=== PATIENT | male | born 1990 | race Caucasian/White ===

== ENCOUNTER 2016-12-20 20:46 | Emergency (ER) | payer BC ==
[2016-12-20 20:52] VITALS: BP 171/93
--- NOTE | 2016-12-20 21:13 | ED ---
Medical Screening - HPI Summary HPI Summary: 26M presents for testing to be admitted to detox for drugs. He uses fenatyl, oxycodone. He denies any symptoms at this time. Last use was today. He does not use any IV drugs. He denies any chest pain, SOB, or fever. - History of Current Complaint Chief Complaint: EDGeneral Stated Complaint: REQUESTING TESTING FOR DETOX ADMISSION Time Seen by Provider: 12/20/16 21:05 PMH/Surg Hx/FS Hx/Imm Hx Endocrine/Hematology History: Denies: Hx Anticoagulant Therapy Cardiovascular History: Reports: Hx Hypertension Infectious Disease History: No Infectious Disease History: Denies: Traveled Outside the in Last 30 Days - Family History Known Family History: Negative: Cardiac Disease - Social History Alcohol Use: Occasionally Substance Use Type: Reports: Other - narcoctics Review of Systems Negative: Fever Negative: Chest Pain Negative: Shortness Of Breath All Other Systems Reviewed And Are Negative: Yes Physical Exam Triage Information Reviewed: Yes Vital Signs On Initial Exam: Initial Vitals Temp Pulse Resp BP Pulse Ox 98.6 F 78 17 171/93 100 12/20/16 20:47 12/20/16 20:47 12/20/16 20:47 12/20/16 20:47 12/20/16 20:47 Vital Signs Reviewed: Yes Appearance: Positive: Well-Appearing Skin: Positive: Warm, Dry Head/Face: Positive: Normal Head/Face Inspection Eyes: Positive: Normal, Conjunctiva Clear Respiratory/Lung Sounds: Positive: Clear to Auscultation, Breath Sounds Present Cardiovascular: Positive: Normal, RRR Diagnostics - Vital Signs Vital Signs Temp Pulse Resp BP Pulse Ox 12/20/16 20:47 98.6 F 78 17 171/93 100 - Laboratory Lab Statement: Any lab studies that have been ordered have been reviewed, and results considered in the medical decision making process. - EKG No standard instances Cardiac Rate: NL EKG Rhythm: Sinus Rhythm EKG Interpretation: early repolization consistent with age Course/Dx - Course Course Of Treatment: 26M presents for medical clearance for detox. last usage today uses narcoctics. is trying to get into facility in [facility]. They require a EKG, CBC, CMP which obtained. EKG normal for age. told patient will follow up with detox center. - Diagnoses Provider Diagnoses: Encounter for medical screening examination Discharge - Discharge Plan Condition: Good Disposition: HOME Additional Instructions: Follow up with detox center Return to ED if develop any new or worsening symptoms
[2016-12-20 21:45] LABS: Hematocrit 42 % (42-52); Hemoglobin 14.5 g/dl (14.0-18.0); Mean Corpuscular HGB Conc 35 g/dl (31-36); Mean Corpuscular Hemoglobin 31 pg (27-31); Mean Corpuscular Volume 90 fL (80-94); Mean Platelet Volume 9 um3 (7.4-10.4); Red Blood Count 4.62 10^6/ul (4.0-5.4); Red Cell Distribution Width 12 % (10.5-15); White Blood Count 7.5 10^3/ul (3.5-10.8)
[2016-12-20 22:05] LABS: Albumin 4.3 g/dL (3.2-5.2); BUN/Creatinine Ratio 15.2 (8-20); Calcium 9.4 mg/dL (8.6-10.3); EGFR African American 153.7 (>60); EGFR Non-African American 119.5 (>60); Globulin 2.9 g/dL (2-4); Potassium 3.8 mmol/L (3.5-5.0); Total Bilirubin 0.7 mg/dL (0.2-1.0); Total Protein 7.2 g/dL (6.4-8.9)
== END 2016-12-20 21:53 | disposition home or self-care (01) ==
LOC: ED 20:46
DX: Z00.00 Encounter for general adult medical examination without abnormal findings (principal)
CPT/HCPCS: 36415; 80053; 85025; 99282

== ENCOUNTER 2017-11-06 09:06 | Emergency (ER) | payer BC, MEDICAID ==
[2017-11-06 09:19] VITALS: BP 129/67
--- NOTE | 2017-11-06 09:29 | UC ---
Dental HPI - HPI Summary HPI Summary: Pt presents with left lower wisdom tooth pain. He said this pain began earlier this week, but thought it would go away with ibuprofen - has been getting worse. He called his dentist yesterday, but they did not call him back before closing time. He says that this wisdom tooth needs to be pulled as it is growing in crooked. Denies fever, chills, sore throat, SOB, chest pain, abdominal pain, n/v/d/c. - History of Current Complaint Chief Complaint: UCDentalProblem Stated Complaint: TOOTH ACHE Time Seen by Provider: 11/06/17 09:20 Hx Obtained From: Patient Onset/Duration: Gradual Onset Severity: Severe Pain Intensity: 10 Pain Scale Used: 0-10 Numeric - Allergies/Home Medications Allergies/Adverse Reactions: Allergies Allergy/AdvReac Type Severity Reaction Status Date / Time No Known Allergies Allergy Verified 11/06/17 09:14 Home Medications: Home Medications Lisinopril TAB* [Prinivil TAB 10 MG*] 10 mg PO DAILY 11/06/17 [History Confirmed 11/06/17] buPROPion TAB* [Wellbutrin TAB*] 300 mg PO DAILY 11/06/17 [History Confirmed 12/19] PMH/Surg Hx/FS Hx/Imm Hx Previously Healthy: Yes Cardiovascular History: Hypertension Other History Of: Negative For: Anticoagulant Therapy - Surgical History Surgical History: Yes Surgery Procedure, Year, and Place: plate and screws in left ankle - Family History Known Family History: Negative: Cardiac Disease - Social History Occupation: Employed Full-time Lives: Alone Alcohol Use: Occasionally Alcohol Amount: beer Substance Use Type: None Substance Use Comment - Amount & Last Used: opiates Smoking Status (MU): Heavy Every Day Tobacco Smoker Cessation Counseling: Counseled 3+Min - 10 Min Review of Systems Constitutional: Negative Skin: Negative Eyes: Negative ENT: Dental Pain Respiratory: Negative Cardiovascular: Negative Gastrointestinal: Negative Neurological: Negative Psychological: Negative All Other Systems Reviewed And Are Negative: Yes Physical Exam Triage Information Reviewed: Yes Appearance: Well-Appearing, No Pain Distress, Well-Nourished Vital Signs: Initial Vital Signs Temp 98 F 11/06/17 09:16 Pulse 77 11/06/17 09:16 Resp 16 11/06/17 09:16 BP 129/67 02/03/18 09:16 Pulse Ox 100 11/06/17 09:16 Vital Signs Reviewed: Yes Eyes: Positive: Conjunctiva Clear. Negative: Conjunctiva Inflamed, Discharge ENT: Positive: Hearing grossly normal, Pharynx normal, TMs normal, Dental tenderness - Tooth 17, Uvula midline. Negative: Pharyngeal erythema, Nasal congestion, Nasal drainage, TM bulging, TM dull, TM red, Tonsillar swelling, Tonsillar exudate, Sinus tenderness Dental: Positive: Percussion Tenderness @ - Tooth 17, Gross Decay/Caries @, Cellulitis @ - Around tooth 17. Negative: Dental Fracture @, Abscess @, Cervical Lymphadenopathy, Bleeding Neck: Positive: Supple, Nontender, No Lymphadenopathy Respiratory: Positive: Lungs clear, Normal breath sounds, No respiratory distress, No accessory muscle use Cardiovascular: Positive: RRR, No Murmur, Pulses Normal Neurological: Positive: Alert Psychological: Positive: Age Appropriate Behavior Skin: Negative: rashes Dental Complaint Course/Dx - Course Course Of Treatment: tooth 17 pain, no obvious signs of cellulitis or abscess, but will cover him with Clindamycin. - Differential Dx/Diagnosis Provider Diagnoses: Tooth pain #17 Discharge - Discharge Plan Condition: Stable Disposition: HOME Prescriptions: Clindamycin Cap(NF) [Clindamycin Cap 300 mg Cap(NF)] 300 mg PO TID #21 cap Lidocaine 2% VISCOUS* [Xylocaine 2% Viscous*] 15 ml SWISH SPIT Q4H PRN #100 ml PRN Reason: Pain Patient Education Materials: Toothache (ED) Referrals: Vinh Jimenez [Primary Care Provider] - Additional Instructions: If you develop a fever, shortness of breath, chest pain, new or worsening symptoms - please call your PCP or go to the ED. 1) Please follow up with your dentist [place]
== END 2017-11-06 09:33 | disposition home or self-care (01) ==
LOC: UCEAST 09:06
DX: H10.9 Unspecified conjunctivitis (principal)
CPT/HCPCS: 99212; G0463

== ENCOUNTER 2019-07-19 17:09 | Emergency (ER) | payer OTHER ==
--- NOTE | 2019-07-19 17:26 | ED ---
Abdominal Pain/Male - HPI Summary HPI Summary: 29 year old M presenting to [facility] accompanied by family member complains of worsening nausea and vomiting since several months ago. Vomiting x4-5 times per day. Recent weight gain. Diffuse mild abdominal pain. Denies diarrhea, bloody stools, fever. The patient rates the pain 4/10 in severity. Symptoms aggravated by nothing. Symptoms alleviated by nothing. States he saw GI 3 months ago for hx hepatitis C. No longer taking medications for hepatitis C. Had abdominal ultrasound on 07/13 which showed fatty infiltration of the liver. PMHx: HTN. Surgical hx: left ankle. FHx: diabetes, kidney disease, CHF. Denies hx IV drug injections. Hx drug use, is on Suboxone. Smokes cigarettes. Denies marijuana use. - History of Current Complaint Chief Complaint: EDNauseaVomitDiarrh Stated Complaint: VOMITTING PER PATIENT Time Seen by Provider: 07/19/19 17:20 Hx Obtained From: Patient Onset/Duration: Lasting Weeks - months, Still Present Timing: Constant Severity Currently: Moderate Pain Intensity: 4 Pain Scale Used: 0-10 Numeric Location: Diffuse Aggravating Factor(s): Nothing Alleviating Factor(s): Nothing Associated Signs And Symptoms: Positive: Negative - diarrhea, bloody stools, fever, Nausea, Vomiting - x4-5 times each day, Other - recent weight gain - Allergies/Home Medications Allergies/Adverse Reactions: Allergies Allergy/AdvReac Type Severity Reaction Status Date / Time No Known Allergies Allergy Verified 11/06/17 09:14 Home Medications: Home Medications Buprenorphine HCl/Naloxone HCl [Buprenorp-Nalox 8-2 mg Sl Film] 2 film SL DAILY 07/19/19 [History Confirmed 07/19/19] Doxepin (NF) 25 mg PO DAILY 07/19/19 [History Confirmed 07/19/19] Pantoprazole TAB * [Protonix TAB*] 40 mg PO DAILY 07/19/19 [History Confirmed ] risperiDONE TAB* [RisperDAL*] 2 mg PO BEDTIME 07/19/19 [History Confirmed ] PMH/Surg Hx/FS Hx/Imm Hx Endocrine/Hematology History: Denies: Hx Anticoagulant Therapy Cardiovascular History: Reports: Hx Hypertension GI History: Reports: Other GI Disorders - hep C - Surgical History Surgery Procedure, Year, and Place: plate and screws in left ankle Infectious Disease History: No Infectious Disease History: Denies: Traveled Outside the [place] in Last 30 Days - Family History Known Family History: Positive: Cardiac Disease - CHF, Diabetes, Renal Disease - Social History Alcohol Use: Occasionally Alcohol Amount: beer Hx Substance Use: Yes Substance Use Type: Reports: None Substance Use Comment - Amount & Last Used: opiates Hx Tobacco Use: Yes Smoking Status (MU): Heavy Every Day Tobacco Smoker Review of Systems Negative: Fever Gastrointestinal: Negative - bloody stools Positive: Abdominal Pain - diffuse, Vomiting, Nausea, Other - recent weight gain. Negative: Diarrhea All Other Systems Reviewed And Are Negative: Yes Physical Exam - Summary Physical Exam Summary: Constitutional: Well-developed, Well-nourished, Alert. (-) Distressed Skin: Warm, Dry HENT: Normocephalic; Atraumatic Eyes: Conjunctiva normal Neck: Musculoskeletal ROM normal neck. (-) JVD, (-) Stridor, (-) Nuchal rigidity Cardio: Rhythm regular, rate normal, Heart sounds normal; Intact distal pulses; Radial pulses are 2+ and symmetric. (-) Murmur Pulmonary/Chest wall: Effort normal. (-) Respiratory distress, (-) Wheezes, (-) Rales Abd: Soft, mild generalized tenderness, (-) Distension, (-) Guarding, (-) Rebound Musculoskeletal: (-) Edema Lymph: (-) Cervical adenopathy Neuro: Alert, Oriented x3 Psych: Mood and affect Normal Triage Information Reviewed: Yes Vital Signs On Initial Exam: Initial Vitals Temp Pulse Resp BP Pulse Ox 97.5 F 84 16 143/96 96 07/19/19 17:15 07/19/19 17:15 07/19/19 17:15 07/19/19 17:15 07/19/19 17:15 Vital Signs Reviewed: Yes Procedures - Sedation Patient Received Moderate/Deep Sedation with Procedure: No Diagnostics - Vital Signs Vital Signs Temp Pulse Resp BP Pulse Ox 07/19/19 17:15 97.5 F 84 16 143/96 96 - Laboratory Result Diagrams: 07/19/19 17:29 07/19/19 17:29 Lab Statement: Any lab studies that have been ordered have been reviewed, and results considered in the medical decision making process. - CT Abd/Pel CT Interpretation Completed By: Radiologist Summary of CT Findings: 1. Fatty infiltration of the liver. 2. Otherwise negative CT abdomen/pelvis. ED physician has reviewed this report. Re-Evaluation - Re-Evaluation First Eval Re-Evaluation Time: 19:01 Comment: mild itching of chest wall. no difficulty breathing. will give Benadryl and continue to monitor as he drinks contrast Second Eval Re-Evaluation Time: 21:16 Comment: informed of CT findings, sent home w zofran, has GI follow up. understands d/c instructions Abdominal Pain Male Course/Dx - Course Course Of Treatment: 21-year-old male with a history of hepatitis presents with abdominal pain, nausea and vomiting for 2 weeks. DDx includes appendicitis, pancreatitis, GERD, renal stone, Cholecystitis, Less likely SBO, testicular torsion. Exam relatively unremarkable today, no rigidity or suggestions of acute surgical abd. Pt with negative Mauricio's on exam. Lipase to evaluate for pancreatitis. Will obtain cbc to assess for underlying infection. Will obtain UA to assess for UTI. Denies testicular pain, low suspicion for pathology Will continue to monitor - Diagnoses Provider Diagnoses: Abdominal pain, Nausea and vomiting Discharge ED - Sign-Out/Discharge Documenting (check all that apply): Patient Departure - Discharge - Discharge Plan Condition: Stable Disposition: HOME Prescriptions: Ondansetron ODT TAB* [Zofran 4 MG Odt TAB*] 4 mg PO Q8H PRN 4 Days #12 tab.odt PRN Reason: Nausea/Vomiting Patient Education Materials: Acute Nausea and Vomiting (ED) Referrals: Alexis Clifford MD [Primary Care Provider] - Additional Instructions: You were seen in the emergency department for nausea vomiting abdominal pain. Your CT scan did not show any abnormalities aside from fatty liver. Please take Zofran as needed for vomiting. If any studies were not completed at the time of discharge you will be called with the relevant results. Please follow up with your primary care doctor in next 2-3 days and return to emergency department for worsening pain, inability to eat or drink, or concerning symptoms. It was a pleasure taking care of you today. - Billing Disposition and Condition Condition: STABLE Disposition: Home - Attestation Statements Document Initiated by Scribe: Yes Documenting Scribe: Sana Kim Provider For Whom Scribe is Documenting (Include Credential): Georgina Kwan MD Scribe Attestation: I, Sana Kim, scribed for Georgina Kwan MD on 07/19/19 at 2121. Scribe Documentation Reviewed: Yes Provider Attestation: The documentation as recorded by the luisibSana andrade accurately reflects the service I personally performed and the decisions made by , Georgina Kwan MD Status of Scribe Document: Viewed
[2019-07-19 17:40] LABS: ABS Eosinophils 0.2 10^3/ul (0-0.6); ABS Lymphocytes 2.1 10^3/ul (1.0-4.8); ABS Monocytes 0.6 10^3/ul (0-0.8); ABS Neutrophils 5.8 10^3/ul (1.5-7.7); Eosinophil % 1.9 %; Hematocrit 42 % (42-52); Hemoglobin 14.8 g/dL (14.0-18.0); Lymphocyte % 24.7 %; Mean Corpuscular HGB Conc 36 g/dL (31-36); Mean Corpuscular Hemoglobin 31 pg (27-31); Mean Corpuscular Volume 87 fL (80-94); Mean Platelet Volume 7.9 fL (7.4-10.4); Platelet Count 292 10^3/uL (150-450); Red Cell Distribution Width 13 % (10-15); White Blood Count 8.7 10^3/uL (3.5-10.8)
[2019-07-19 17:58] LABS: ALT 40 U/L (7-52); AST 13 U/L (13-39); Albumin 4.7 g/dL (3.2-5.2); Albumin/Globulin Ratio 1.6 (1-3); Alkaline Phosphatase 61 U/L (34-104); Anion Gap 7 mmol/L (2-11); Blood Urea Nitrogen 12 mg/dL (6-24); CO2 Carbon Dioxide 26 mmol/L (22-32); Calcium 9.7 mg/dL (8.6-10.3); Chloride 101 mmol/L (101-111); EGFR African American 118.5 (>60); Glucose 120 mg/dL (70-100); Potassium 3.6 mmol/L (3.5-5.0); Sodium 134 mmol/L (135-145); Total Protein 7.7 g/dL (6.4-8.9)
[2019-07-19] MEDS ORDERED: Ondansetron INJ* 2 MG/ML VIAL IV ONE (18:03)
[2019-07-19] MEDS ORDERED: NS 0.9% 1000 ML** 1,000 ML IV ONE (18:03)
[2019-07-19] MEDS ORDERED: diPHENhydraMINE PO* 25 MG PO ONE (19:00)
[2019-07-19] MEDS ORDERED: Iohexol 300* (CONTRAST) 10 ML SDV IV ONE (19:49)
[2019-07-19 21:35] VITALS: BP 121/90
== END 2019-07-19 21:30 | disposition home or self-care (01) ==
LOC: ED 17:09
DX: R11.2 Nausea with vomiting, unspecified (principal); R10.9 Unspecified abdominal pain; K76.0 Fatty (change of) liver, not elsewhere classified; I10 Essential (primary) hypertension; F17.200 Nicotine dependence, unspecified, uncomplicated; Z79.899 Other long term (current) drug therapy
CPT/HCPCS: 36415; 74177; 80053; 83690; 85025; 96361; 96374; 99283; A9270-GY; J2405; Q9967

== ENCOUNTER 2019-10-12 19:17 | Emergency (ER) | payer OTHER ==
[2019-10-12 20:09] LABS: ABS Basophils 0.1 10^3/ul (0-0.2); ABS Eosinophils 0.3 10^3/ul (0-0.6); ABS Lymphocytes 2.7 10^3/ul (1.0-4.8); ABS Monocytes 0.8 10^3/ul (0-0.8); ABS Neutrophils 5.8 10^3/ul (1.5-7.7); Eosinophil % 3.4 %; Hematocrit 41 % (42-52); Hemoglobin 14.5 g/dL (14.0-18.0); Lymphocyte % 27.7 %; Mean Corpuscular HGB Conc 36 g/dL (31-36); Mean Corpuscular Hemoglobin 32 pg (27-31); Mean Corpuscular Volume 89 fL (80-94); Mean Platelet Volume 8.4 fL (7.4-10.4); Nucleated Red Blood Cells % 0.1; Platelet Count 246 10^3/uL (150-450); Red Blood Count 4.58 10^6 /uL (4.18-5.48); Red Cell Distribution Width 13 % (10-15); White Blood Count 9.6 10^3/uL (3.5-10.8)
[2019-10-12 20:27] LABS: Albumin 4.1 g/dL (3.2-5.2); Albumin/Globulin Ratio 1.5 (1-3); BUN/Creatinine Ratio 13.4 (8-20); EGFR African American 111.5 (>60); EGFR Non-African American 92.2 (>60); Globulin 2.8 g/dL (2-4); Potassium 3.9 mmol/L (3.5-5.0); Total Bilirubin 0.4 mg/dL (0.2-1.0); Total Protein 6.9 g/dL (6.4-8.9)
[2019-10-12] MEDS ORDERED: Ketorolac INJ* 30 MG/ML 1 ML VIAL IV PUSH ONE (22:21)
[2019-10-12] MEDS ORDERED: Pantoprazole IV* 40 MG IV ONE (22:21)
--- NOTE | 2019-10-12 22:44 | ED ---
GI/ HPI - HPI Summary HPI Summary: 29 year old male presents with chest pain today. He is also been having left upper quadrant pain. He states he has noticed a mass to his LUQ. He states that he is short of breath. He states pain is worst with deep breath. pain does not change with positional changes. Hasn't tried anything for his symptoms. Denies any nausea vomiting. He denies any diarrhea or constipation. No urinary symptoms. Pain does not radiate to the back. He does have a significant cardiac and history of blood clots. He denies any drug use. Has history of high blood pressure. has fam hx of pancreatitis. - History of Current Complaint Chief Complaint: EDAbdPain Time Seen by Provider: 10/12/19 22:08 Stated Complaint: ABD PAIN PER PT Pain Intensity: 7 - Allergy/Home Medications Allergies/Adverse Reactions: Allergies Allergy/AdvReac Type Severity Reaction Status Date / Time No Known Allergies Allergy Verified 10/12/19 19:21 Home Medications: Home Medications Testosterone Cypionate (NF) 1 ea INJ SEE INSTRUCTIONS 10/12/19 [History Confirmed 10/12/19] PMH/Surg Hx/FS Hx/Imm Hx Endocrine/Hematology History: Denies: Hx Anticoagulant Therapy, Hx Diabetes Cardiovascular History: Reports: Hx Hypertension GI History: Reports: Other GI Disorders - hep C History: Denies: Hx Renal Disease - Surgical History Surgery Procedure, Year, and Place: plate and screws in left ankle Infectious Disease History: No Infectious Disease History: Denies: Traveled Outside the [place] in Last 30 Days - Family History Known Family History: Positive: Cardiac Disease - CHF, Diabetes, Renal Disease, Blood Disorder - Social History Alcohol Use: None Alcohol Amount: beer Hx Substance Use: Yes Substance Use Type: Reports: None Substance Use Comment - Amount & Last Used: opiates Hx Tobacco Use: Yes Smoking Status (MU): Current Every Day Smoker Review of Systems Negative: Fever Positive: Chest Pain Positive: Shortness Of Breath. Negative: Cough Positive: Abdominal Pain. Negative: Vomiting, Nausea All Other Systems Reviewed And Are Negative: Yes Physical Exam Triage Information Reviewed: Yes Vital Signs On Initial Exam: Initial Vitals Temp Pulse Resp BP Pulse Ox 98.3 F 88 18 146/100 98 10/12/19 19:21 10/12/19 19:21 10/12/19 19:21 10/12/19 19:21 10/12/19 19:21 Vital Signs Reviewed: Yes Appearance: Positive: Well-Appearing Skin: Positive: Warm, Dry Head/Face: Positive: Normal Head/Face Inspection Eyes: Positive: Normal, Conjunctiva Clear ENT: Positive: Pharynx normal Respiratory/Lung Sounds: Positive: Clear to Auscultation, Breath Sounds Present , Other - reproducible chest pain Cardiovascular: Positive: Normal, RRR Abdomen Description: Positive: Soft, Other: - tenderness LUQ Bowel Sounds: Positive: Present Musculoskeletal: Positive: Normal Neurological: Positive: Normal Psychiatric: Positive: Normal Procedures - Sedation Patient Received Moderate/Deep Sedation with Procedure: No Diagnostics - Vital Signs Vital Signs Temp Pulse Resp BP Pulse Ox 10/12/19 21:58 98.5 F 20 75 142/88 97 10/12/19 19:21 98.3 F 88 18 146/100 98 - Laboratory Lab Results: Lab Results 10/12/19 10/12/19 Range/Units 19:59 19:59 WBC 9.6 (3.5-10.8) 10^3/uL RBC 4.58 (4.18-5.48) 10^6 /uL Hgb 14.5 (14.0-18.0) g/dL Hct 41 L (42-52) % MCV 89 (80-94) fL MCH 32 H (27-31) pg MCHC 36 (31-36) g/dL RDW 13 (10-15) % Plt Count 246 (150-450) 10^3/uL MPV 8.4 (7.4-10.4) fL Neut % (Auto) 60.1 % Lymph % (Auto) 27.7 % [place] % (Auto) 7.9 % Eos % (Auto) 3.4 % Baso % (Auto) 0.9 % Absolute Neuts (auto) 5.8 (1.5-7.7) 10^3/ul Absolute Lymphs (auto) 2.7 (1.0-4.8) 10^3/ul Absolute Monos (auto) 0.8 (0-0.8) 10^3/ul Absolute Eos (auto) 0.3 (0-0.6) 10^3/ul Absolute Basos (auto) 0.1 (0-0.2) 10^3/ul Absolute Nucleated RBC 0.0 10^3/ul Nucleated RBC % 0.1 Sodium 135 (135-145) mmol/L Potassium 3.9 (3.5-5.0) mmol/L Chloride 102 (101-111) mmol/L Carbon Dioxide 26 (22-32) mmol/L Anion Gap 7 (2-11) mmol/L BUN 13 (6-24) mg/dL Creatinine 0.97 (0.67-1.17) mg/dL Est GFR ( Amer) 111.5 (>60) Est GFR (Non-Af Amer) 92.2 (>60) BUN/Creatinine Ratio 13.4 (8-20) Glucose 117 H (70-100) mg/dL Calcium 9.0 (8.6-10.3) mg/dL Total Bilirubin 0.40 (0.2-1.0) mg/dL AST 24 (13-39) U/L ALT 42 (7-52) U/L Alkaline Phosphatase 76 (34-104) U/L Total Protein 6.9 (6.4-8.9) g/dL Albumin 4.1 (3.2-5.2) g/dL Globulin 2.8 (2-4) g/dL Albumin/Globulin Ratio 1.5 (1-3) Lipase 17 (11.0-82.0) U/L Result Diagrams: 10/12/19 19:59 10/12/19 19:59 Lab Statement: Any lab studies that have been ordered have been reviewed, and results considered in the medical decision making process. - Radiology chest Radiology Interpretation Completed By: ED Physician Summary of Radiographic Findings: no active disease - CT chest, abd CT Interpretation Completed By: Radiologist Summary of CT Findings: COMMENT: See concurrently obtained chest CT for further details. - EKG No standard instances Cardiac Rate: NL EKG Rhythm: Sinus Rhythm Summary of EKG Findings: sinus rhythm Re-Evaluation - Re-Evaluation First Eval Re-Evaluation Time: 23:10 Comment: discussed results Second Eval Re-Evaluation Time: 01:53 Comment: discussed CT results, patient became upset that could not find cause for pain GIGU Course/Dx - Course Course Of Treatment: 29 year old male presents with chest pain today. He is also been having left upper quadrant pain. He states he has noticed a mass to his LUQ. He states that he is short of breath. He states pain is worst with deep breath. pain does not change with positional changes. Hasn't tried anything for his symptoms. Denies any nausea vomiting. He denies any diarrhea or constipation. No urinary symptoms. Pain does not radiate to the back. He does have a significant cardiac and history of blood clots. He denies any drug use. Has history of high blood pressure. On exam tenderness reproducible of chest and tender left upper quadrant. wbc normal. d-dimer elevated. heart score 3. CTA shows IMPRESSION: No CT findings to correlate with patient's symptomatology. patient given results and he became upset. - Diagnoses Differential Diagnoses - Male: Gastritis, Other - PE Provider Diagnoses: Chest wall pain, Abdominal pain Discharge ED - Sign-Out/Discharge Documenting (check all that apply): Patient Departure - Discharge Plan Condition: Good Disposition: HOME Prescriptions: Omeprazole CAP (NF) [Prilosec CAP* 20 MG] 20 mg PO DAILY #14 cap.dr Patient Education Materials: Chest Pain (ED), Acute Abdominal Pain (ED) Referrals: Alexis Clifford MD [Primary Care Provider] - Irvni Thomas MD [Medical Doctor] - Additional Instructions: take tyenlol for pain every 6 hours take omeprazole once a day follow up with primary within 5 days A referral was given to GI Return to ED if develop any new or worsening symptoms - Billing Disposition and Condition Condition: GOOD Disposition: Home
[2019-10-13] MEDS ORDERED: Iohexol 350* (CONTRAST) 500 ML MDV IV ONE (00:05)
[2019-10-13 00:06] LABS: Troponin I 0.01 ng/mL (<0.03)
[2019-10-13 02:04] VITALS: BP 00/00
== END 2019-10-13 01:55 | disposition home or self-care (01) ==
LOC: ED 19:17
DX: R07.89 Other chest pain (principal); R10.9 Unspecified abdominal pain; R06.02 Shortness of breath; F17.210 Nicotine dependence, cigarettes, uncomplicated
CPT/HCPCS: 36415; 71045; 71275; 74177; 80053; 83690; 84484; 85025; 85379; 93005; 96374; 96375; 99283; J1885; Q9967

== ENCOUNTER 2019-10-21 21:54 | Emergency (ER) | payer OTHER ==
[2019-10-21] MEDS ORDERED: diPHENhydraMINE IV* 50 MG/ML 1 ml VIAL (BENADRYL) IM ONE (22:47)
--- NOTE | 2019-10-21 22:49 | ED ---
Complex/Multi-Sys Presentation - HPI Summary HPI Summary: 29-year-old male presents to the emergency department today complaining of stiff neck and jaw which began approximately one hour ago. Patient states he is not taking any new medications and denies any trauma. Patient otherwise feels well and denies fever, chest pain, bone pain, pain with urination, rash. Patient was brought in via EMS who gave him steroids, Benadryl for presumed allergic reaction. Patient's complaints and physical exam are not consistent with allergic reaction but rather acute dystonia. Patient denies recent recreational drug use or alcohol use. - History Of Current Complaint Chief Complaint: EDAllergicReaction Time Seen by Provider: 10/21/19 22:34 Hx Obtained From: Patient Onset/Duration: Gradual Onset, Lasting Hours Timing: Constant Severity Currently: Moderate Severity Initially: Moderate - Allergies/Home Medications Allergies/Adverse Reactions: Allergies Allergy/AdvReac Type Severity Reaction Status Date / Time No Known Allergies Allergy Verified 10/12/19 19:21 PMH/Surg Hx/FS Hx/Imm Hx Endocrine/Hematology History: Denies: Hx Anticoagulant Therapy, Hx Diabetes Cardiovascular History: Reports: Hx Hypertension GI History: Reports: Other GI Disorders - hep C History: Denies: Hx Renal Disease - Surgical History Surgery Procedure, Year, and Place: plate and screws in left ankle Infectious Disease History: No Infectious Disease History: Denies: Traveled Outside the [place] in Last 30 Days - Family History Known Family History: Positive: Cardiac Disease - CHF, Diabetes, Renal Disease, Blood Disorder - Social History Alcohol Use: None Alcohol Amount: beer Hx Substance Use: Yes Substance Use Type: Reports: None Substance Use Comment - Amount & Last Used: opiates Hx Tobacco Use: Yes Smoking Status (MU): Current Every Day Smoker Review of Systems Constitutional: Negative Eyes: Negative ENT: Negative Cardiovascular: Negative Respiratory: Negative Gastrointestinal: Negative Genitourinary: Negative Positive: Myalgia, Decreased ROM Skin: Negative Neurological: Negative Psychological: Normal All Other Systems Reviewed And Are Negative: Yes Physical Exam - Summary Physical Exam Summary: Pt states left neck is stiff and he feels the need to keep head turned to the left. Mild trismus noted. Triage Information Reviewed: Yes Vital Signs On Initial Exam: Initial Vitals Temp Pulse Resp BP Pulse Ox 98.1 F 95 16 171/101 99 10/21/19 22:00 10/21/19 22:00 10/21/19 22:00 10/21/19 22:00 10/21/19 22:00 Vital Signs Reviewed: Yes Appearance: Positive: Well-Appearing, No Pain Distress, Well-Nourished Skin: Positive: Warm, Skin Color Reflects Adequate Perfusion Eyes: Positive: EOMI, VICTORIA ENT: Positive: Hearing grossly normal Respiratory/Lung Sounds: Positive: Clear to Auscultation, Breath Sounds Present Cardiovascular: Positive: RRR, S1, S2 Abdomen Description: Positive: Nontender, Soft Bowel Sounds: Positive: Present Musculoskeletal: Positive: Strength/ROM Intact Neurological: Positive: Sensory/Motor Intact, Alert, Oriented to Person Place, Time, Normal Gait, Facial Symmetry, Speech Normal Psychiatric: Positive: Normal, Affect/Mood Appropriate AVPU Assessment: Alert Procedures - Sedation Patient Received Moderate/Deep Sedation with Procedure: No Diagnostics - Vital Signs Vital Signs Temp Pulse Resp BP Pulse Ox 10/21/19 22:00 98.1 F 95 16 171/101 99 - Laboratory Lab Statement: Any lab studies that have been ordered have been reviewed, and results considered in the medical decision making process. Complex Multi-Symp Course/Dx Course Of Treatment: Pt evaluated, vitals noted. Physical exam consistent with acute dystonia. Pt given benadryl 50mg and steroids via EMS for presumed allergic reaction. Pt given additional 25mg benadryl in the ED. After benadryl administration pt was asymptmoatic and desired discharge. PT DC with outpatient follow up and told to take benadryl 50mg for symtpms. - Diagnoses Differential Diagnoses/HQI/PQRI: Metabolic Abnormality, Other - drug abuse Provider Diagnoses: Dystonia Discharge ED - Sign-Out/Discharge Documenting (check all that apply): Patient Departure - Discharge Plan Condition: Stable Disposition: HOME Patient Education Materials: Extrapyramidal Symptoms (ED) Referrals: Alexis Clifford MD [Primary Care Provider] - 3 Days Additional Instructions: Take benadryl 50mg every 6 hours as needed for symptoms. Please follow up with your primary care provider in 3 days for further evaluation and management. Please return to the emergency department immediately if you develop any new or worsening symptoms. - Billing Disposition and Condition Condition: STABLE Disposition: Home
[2019-10-21 23:35] VITALS: BP 151/95
== END 2019-10-21 23:30 | disposition home or self-care (01) ==
LOC: ED 21:54
DX: G24.9 Dystonia, unspecified (principal); F17.210 Nicotine dependence, cigarettes, uncomplicated; Z79.899 Other long term (current) drug therapy
CPT/HCPCS: 96374; 99283; J1200